=== PATIENT | female | born 1955 | race Caucasian/White ===

== ENCOUNTER 2016-05-29 20:31 | Emergency (ER) | payer OTHER ==
[~2016-05-29] VITALS: Ht 165.1 cm; Wt 73.5 kg
[~2016-05-29 20:31] MED LIST: CELE50CA; LUN1; RABE20TA5; SOLI5TAB5; VIC
[2016-05-29 21:42] VITALS: Ht 165.1 cm; Wt 73.5 kg
[2016-05-30] MEDS ORDERED: IBUPROFEN 600 MG TAB PO ONE (02:00)
--- NOTE | 2016-05-30 02:35 | RADRPT ---
PROCEDURE: US left lower extremity venous Doppler CLINICAL INDICATION: Swelling TECHNIQUE: Multiple sonographic images of the left lower extremity deep venous system was obtained utilizing grayscale, color-flow, compressive sonography and Doppler imaging with augmentation. COMPARISON: No pertinent prior examinations were submitted for comparison. FINDINGS: There is normal compressibility and flow within the left common femoral, superficial femoral, poplit eal, and calf veins. IMPRESSION: No sonographic evidence for left deep venous thrombosis. RPTAT: HIKT .Jerry Salcedo MD, MD Date Time Electronically viewed and signed by .Jerry Salcedo MD, MD on 05/30/2016 02:35 .T/
[2016-05-30 03:20] VITALS: BP 172/84; PULSE 76; RESP 18; TEMP 97.5
--- NOTE | 2016-05-30 07:29 | ERD ---
ER Documentation Chief Complaint Date/Time DATE: 05/30/16 TIME: 07:26 Chief Complaint Left Knee pain and inflamation. swelling HPI 61-year-old female previously healthy presenting with left knee pain. She states that she has been having left knee pain for a while. She is seeing an orthopedist at [facility] [place] who has been working her up. Her x-ray did not show any abnormalities. She was diagnosed with IT band syndrome. She went to physical therapy which actually made her symptoms worse. She followed up with her orthopedist who ordered an MRI of her knee which is still pending. In the past 2 days her knee pain has gotten significantly worse and she is unable to bear weight on the leg. When she is at rest and not walking she feels very little pain. She denies any associated leg swelling. However she was sent here to rule out DVT. ROS All systems reviewed and are negative except as per history of present illness. Medications Home Meds Reported Medications Rabeprazole Sodium* (Aciphex*) 20 Mg Tablet. 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 Neck: Full range of motion..~ No meningismus. Resp: Clear to auscultation bilaterally Cardio: Regular rate and rhythm, no murmurs Abd: Soft, non tender, non distended. Normal bowel sounds Skin: No petechiae or rashes Back: No midline or flank tenderness Ext: No cyanosis, or edema. No calf tenderness. No discoloration in bilateral lower extremities. Left knee joint without effusion or ecchymosis. No joint laxity. No tenderness of the joint on palpation. 2+ distal pulses. Neur: Awake and alert Psych: Normal Mood and Affect Results 24 hrs Current Medications Medications (Trade) Dose Ordered Sig/Damion Route PRN Reason Start Time Stop Time Status Last Admin Dose Admin Ibuprofen (Motrin) 600 mg ONCE ONCE PO 05/30/16 02:00 05/30/16 02:01 DC 05/30/16 02:11 Procedures/MDM Patient is presenting with acute on chronic left knee pain with difficulty ambulating secondary to the pain. I have a low suspicion for DVT but an ultrasound was done to rule out DVT and was normal. I do not think we need any further imaging of her knee as this is been done in the past and has been unremarkable. I recommended she follow-up for her MRI as scheduled and follow- up with her orthopedist. Return precautions were discussed. Patient states that she has pain medications at home and does not need more. Crutches were provided for comfort. Departure Diagnosis: Primary Impression: Knee pain, left Chronicity: chronic Qualified Code: M25.562 - Chronic pain of left knee Condition: Stable Patient Instructions: Knee Pain, Uncertain Cause Additional Instructions: Follow-up for your MRI as scheduled. Follow-up with your orthopedist. Return for any worsening symptoms. SHARON MCCABE MD May 30, 2016 07:29
== END 2016-05-30 03:20 | disposition home or self-care (01) ==
LOC: E/R 20:31
DX: M25.562 Pain in left knee (principal)
CPT/HCPCS: 93971